=== PATIENT | male | born 1980 | race Caucasian/White ===

== ENCOUNTER 2016-07-13 13:03 | Day surgery (SDC) | payer OTHER ==
[~2016-07-13 13:03] MED LIST: FISH100020 PO; HYDR-3533 PO; TAB-TAB PO
[2016-07-13 13:53] VITALS: BP 149/91; PULSE 84; RESP 18; TEMP 98.4; O2SAT 97
[2016-07-13 15:19] VITALS: BP 149/97; PULSE 86; RESP 16; O2SAT 100
--- NOTE | 2016-07-13 15:32 | RADRPT ---
EXAM DATE/TIME: 07/13/2016 13:44 [place] COMPARISON: No previous studies available for comparison. INDICATIONS : Left thyroid nodule. MEDICAL HISTORY : Hypercholesterolemia. Hiatal hernia. SURGICAL HISTORY : Transoral hiatal hernia repair. ENCOUNTER: Initial ACUITY: 2 weeks PAIN SCORE: 1/10 LOCATION: Left neck ORGAN: Left thyroid lobe SPECIMENS: One fine needle aspirate(s) submitted for pathologic evaluation. DEVICE: 22 gauge needle Post procedure scanning reveals no hematoma or other complication. The possibility does exist that the tissue obtained will be non-diagnostic. If the sample is non-mark gnostic a repeat biopsy or surgical biopsy may need to be performed. TECHNIQUE: 1. Ultrasound guidance for needle biopsy. 2. Needle biopsy. The risks, benefits, and alternatives to ultrasound guided needle biopsy were explained to the patien t in detail including the risk of bleeding and infection. Written and verbal informed consent was ob tained. With the patient on the ultrasound table, images were obtained. Overlying skin was prepped and drape d in the usual sterile fashion and Lidocaine was utilized as a local anesthetic. A needle was advanced into the identified target and the number of specimens as above obtained and wu bmitted for pathologic evaluation. A total of 30 cc of bloody fluid was removed. The patient tolerated the procedure well and left the ultrasound suite in stable condition. CONCLUSION: Uncomplicated ultrasound guided needle biopsy and aspiration. Sonido George MD on July 13, 2016 at 15:29 Board Certified Radiologist. This report was verified electronically.
[2016-07-13 15:35] VITALS: BP 150/93; PULSE 83; RESP 16; O2SAT 100
[2016-07-13] MEDS ORDERED: SODIUM BICARBONATE 8.4% INJ 50 ML ONE (15:53)
[2016-07-13] MEDS ORDERED: LIDOCAINE HCL 1% PF 30 ML VIAL ONE (15:53)
== END 2016-07-13 14:30 | disposition home or self-care (01) ==
LOC: HRAD 13:03 → HRIP 13:04 → HRAD 14:30
PROVIDERS: ATTEND Family Medicine
DX: E04.1 Nontoxic single thyroid nodule (principal)
CPT/HCPCS: 10022; 76942; 88172; 88173